=== PATIENT | male | born 2005 | race Caucasian/White ===

== ENCOUNTER 2023-09-07 15:46 | Emergency (ER) | payer BC, SELFPAY ==
[2023-09-07 16:14] VITALS: BP 134/68; PULSE 63; RESP 16; TEMP 37.4; O2SAT 96; BMI 21.3
--- NOTE | 2023-09-07 17:14 | ED.GENADULT ---
HPI - General Adult General Date Seen: 09/07/23 Chief complaint: Weakness Stated complaint: Dizzy Time Seen by Provider: 09/07/23 16:58 Source: patient and RN notes reviewed Mode of arrival: ambulatory Limitations: no limitations History of Present Illness HPI narrative: Patient is a 18-year-old [employer] student comes in for a couple weeks of fatigue and weakness. He is originally from [facility], he went to school in [place] last year now is a sophomore at [employer]. 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 Overall he feels things are going well at [employer]. He is on the swim team. He notes for the past couple of weeks he has been too fatigued to participate in practice is. He does say that this is happened to him in the past and he has been evaluated multiple times. About a year ago he saw orthopedically impaired teacher because his heart rate during practice is was going into the low 200s, he says all of his test were unremarkable and ultimately he just watches his exertion to make sure that his heart rate is getting too fast. He does not have exertional chest pain, he did have some near syncopal type symptoms last year that prompted this cardiology workup. He says he has been evaluated in the past for immune system disorders all of which was negative. He says he has been tested for mono more times that he can remember. He denies symptoms of depression or any mental health history. He has not recently had any fevers, cough, difficulty breathing, vomiting or diarrhea. He says school is going well. He denies tobacco or alcohol use, denies any other substance use. He has gained a little bit of weight in the past few weeks intentionally as he is lifting for a swim team. Related Data Home Medications Medication Instructions Recorded Confirmed calcium phos,dibas-vitamin D3 PO 09/07/23 Allergies Allergy/AdvReac Type Severity Reaction Status Date / Time orange Allergy Intermediate Hives Verified 09/07/23 16:20 Penicillins Allergy Intermediate Hives Verified 09/07/23 16:20 Review of Systems Status of ROS: Reports: 10 or more systems reviewed and unremarkable except as noted in History and below PFSH PFSH Social History Smoking Status: Never smoker Do you use any of these nicotine containing products: None Second hand tobacco smoke exposure: No How often do you have a drink containing alcohol: never AUDIT-C Alcohol total score: 0 Non-prescribed substance use: denies use Exam Narrative: Exam Narrative: Vital signs as noted above. In general, an alert, well-appearing patient. Head: Normocephalic, atraumatic. Eyes: Pupils are equal reactive. Extraocular movements are full. Conjunctivae are normal. ENT: Mucous membranes are moist. Throat is normal. Neck: Supple without lymphadenopathy. Heart: Regular rate and rhythm. No murmur or rub. Lungs: Clear bilaterally. No increased work of breathing, crackles or wheezes. Abdomen: Abdomen is muscular, he flexes all of his muscles with palpation and says he is not able to relax them. He says that his abdominal muscles are sore from workouts. He does not have other significant abdominal pain. Extremities: Well perfused. No edema. No calf tenderness. Pulses intact. Neurologic: Patient is alert and oriented to person and place. Speech is fluent. Face is symmetric. Moves all extremities equally. Affect: Flat. Skin: Warm and dry. Well perfused. Const: Vital Signs, click to edit/add: Vital Signs - 24 hr 09/07/23 16:14 09/07/23 18:26 Temperature 99.4 F Pulse Rate [Pulse Oximeter] 63 67 Respiratory Rate 16 18 Blood Pressure [Ri ght Upper Arm] 134/68 128/68 Pulse Oximetry 96 98 Oxygen Delivery Me thod Room Air Room Air Documenting provider has reviewed patient's vital signs: yes Course Course ED Course: Exam is unremarkable. Discussed that we will check some basic labs, it sounds as if he has had a cardiac workup relatively recently which was unrevealing. His vital signs here are normal, heart sounds are normal. Labs are unremarkable, I did a CBC, metabolic panel, TSH, CRP and sed rate as well as a liver panel. Everything is completely within normal limits with the exception of an AST of 46. I have reviewed all this with him, he says that this has happened every time he has had this evaluated nothing is ever found. Discussed with him that within the confines of what I am able to check in the emergency department everything looks good, but I would encourage primary care follow-up for recheck and discussion of any other testing that may be available in the outpatient setting. Return at any time for worsening. 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 Vital Signs Vital signs: Initial Vital Signs Temperature 99.4 F 09/07/23 16:14 Temperature Source Temporal Artery Scan 09/07/23 16:14 Pulse Rate 63 09/07/23 16:14 Respiratory Rate 16 09/07/23 16:14 Blood Pressure 134/68 09/07/23 16:14 Blood Pressure Mean 90 09/07/23 16:14 Blood Pressure Position Sitting 09/07/23 16:14 Pulse Oximetry 96 09/07/23 16:14 Oxygen Delivery Method Room Air 09/07/23 16:14 Vital Signs Temperature 99.4 F 09/07/23 16:14 Pulse Rate 63 09/07/23 16:14 Respiratory Rate 16 09/07/23 16:14 Blood Pressure 134/68 09/07/23 16:14 Pulse Oximetry 96 09/07/23 16:14 Oxygen Delivery Method Room Air 09/07/23 16:14 Temperature 99.4 F 09/07/23 16:14 Pulse Rate 67 09/07/23 18:26 Respiratory Rate 18 09/07/23 18:26 Blood Pressure 128/68 09/07/23 18:26 Pulse Oximetry 98 09/07/23 18:26 Oxygen Delivery Method Room Air 09/07/23 18:26 Medical Decision Making Lab Data Labs: Lab Results 09/07/23 09/07/23 09/07/23 Range/Units 16:35 16:35 16:35 WBC 7.13 (4.50-11.00) K/uL RBC 4.94 (4.30-5.90) m/uL Hgb 14.9 (13.5-17.5) gm/dL Hct 44.1 (37.0-53.0) % MCV 89 (80-100) fL MCH 30 (26-34) pg MCHC 34 (32-36) gm/dL RDW Coeff of Aury 12.4 (11.5-15.5) % Plt Count 279 (140-440) K/uL Neut % (Auto) 51.7 (42.0-72.0) % Lymph % (Auto) 35.1 (20-44) % [place] % (Auto) 10.9 (0.0-11.0) % Eos % (Auto) 1.8 (0.0-7.0) % Baso % (Auto) 0.4 (0.0-3.0) % Neut # (Auto) 3.68 (1.7-7.0) K/uL Lymph # (Auto) 2.50 (0.90-2.90) K/uL [place] # (Auto) 0.80 (0.00-0.90) K/UL Eos # (Auto) 0.13 (0.00-0.50) K/uL Baso # (Auto) 0.03 (0.00-0.30) K/uL Abs Immat Gran (auto) 0.01 (0.00-0.30) K/uL Imm/Tot Granulo (auto) 0.1 % ESR 2 (2-15) mm/hr Sodium 139 (135-149) mmol/L Potassium 4.3 (3.6-5.1) mmol/L Chloride 101 (96-114) mmol/L Carbon Dioxide 30 (20-32) mmol/L Anion Gap 8 (7-15) mEq/L BUN 16 (5-24) mg/dL Creatinine 0.7 (0.5-1.5) mg/dL Estimated Creat Clear 169.56 Estimated GFR 135 ml/min Glucose 101 (60-115) mg/dL Calcium 9.5 (8.4-10.6) mg/dL Total Bilirubin 0.4 Cancelled (0.1-1.5) mg/dL Direct Bilirubin 0.0 Cancelled (0.0-0.5) mg/dL AST 46 H (12-35) U/L ALT (4-50) U/L Alkaline Phosphatase (40-150) U/L C-Reactive Protein (0.5-1.0) mg/dL Total Protein (6.0-8.3) g/dL Albumin (3.3-5.0) g/dL TSH (0.270-4.200) uIU/mL Urine Color (Yellow) Urine Appearance (Clear) Urine pH (5.0-8.5) Ur Specific [place] (1.000-1.030) Urine Protein (Negative) Urine Glucose (UA) (Negative) Urine Ketones (Negative) Urine Blood (Negative) Urine Nitrite (Negative) Urine Bilirubin (Negative) Urine Urobilinogen (0.2-1.0) Ur Leukocyte Esterase (Negative) Urine RBC (0-2) Urine WBC (0-5) Ur Squamous Epith Cells (None-Few) Urine Bacteria (None) Urine Opiates Screen (Negative) Ur Oxycodone Screen (Negative) Urine Methadone Screen (Negative) Ur Propoxyphene Screen (Negative) Ur Barbiturates Screen (Negative) U Tricyclic Antidepress (Negative) Ur Phencyclidine Scrn (Negative) Ur Amphetamines Screen (Negative) U Methamphetamines Scrn (Negative) U Benzodiazepines Scrn (Negative) Urine Cocaine Screen (Negative) U Marijuana (THC) Screen (Negative) Ur Drug Screen Comment 09/07/23 09/07/23 09/07/23 Range/Units 16:35 16:35 16:35 WBC (4.50-11.00) K/uL RBC (4.30-5.90) m/uL Hgb (13.5-17.5) gm/dL Hct (37.0-53.0) % MCV (80-100) fL MCH (26-34) pg MCHC (32-36) gm/dL RDW Coeff of Aury (11.5-15.5) % Plt Count (140-440) K/uL Neut % (Auto) (42.0-72.0) % Lymph % (Auto) (20-44) % [place] % (Auto) (0.0-11.0) % Eos % (Auto) (0.0-7.0) % Baso % (Auto) (0.0-3.0) % Neut # (Auto) (1.7-7.0) K/uL Lymph # (Auto) (0.90-2.90) K/uL [place] # (Auto) (0.00-0.90) K/UL Eos # (Auto) (0.00-0.50) K/uL Baso # (Auto) (0.00-0.30) K/uL Abs Immat Gran (auto) (0.00-0.30) K/uL Imm/Tot Granulo (auto) % ESR (2-15) mm/hr Sodium (135-149) mmol/L Potassium (3.6-5.1) mmol/L Chloride (96-114) mmol/L Carbon Dioxide (20-32) mmol/L Anion Gap (7-15) mEq/L BUN (5-24) mg/dL Creatinine (0.5-1.5) mg/dL Estimated Creat Clear Estimated GFR ml/min Glucose (60-115) mg/dL Calcium (8.4-10.6) mg/dL Total Bilirubin (0.1-1.5) mg/dL Direct Bilirubin (0.0-0.5) mg/dL AST Cancelled (12-35) U/L ALT 29 Cancelled (4-50) U/L Alkaline Phosphatase 74 Cancelled (40-150) U/L C-Reactive Protein 0.6 (0.5-1.0) mg/dL Total Protein 7.9 (6.0-8.3) g/dL Albumin (3.3-5.0) g/dL TSH (0.270-4.200) uIU/mL Urine Color (Yellow) Urine Appearance (Clear) Urine pH (5.0-8.5) Ur Specific [place] (1.000-1.030) Urine Protein (Negative) Urine Glucose (UA) (Negative) Urine Ketones (Negative) Urine Blood (Negative) Urine Nitrite (Negative) Urine Bilirubin (Negative) Urine Urobilinogen (0.2-1.0) Ur Leukocyte Esterase (Negative) Urine RBC (0-2) Urine WBC (0-5) Ur Squamous Epith Cells (None-Few) Urine Bacteria (None) Urine Opiates Screen (Negative) Ur Oxycodone Screen (Negative) Urine Methadone Screen (Negative) Ur Propoxyphene Screen (Negative) Ur Barbiturates Screen (Negative) U Tricyclic Antidepress (Negative) Ur Phencyclidine Scrn (Negative) Ur Amphetamines Screen (Negative) U Methamphetamines Scrn (Negative) U Benzodiazepines Scrn (Negative) Urine Cocaine Screen (Negative) U Marijuana (THC) Screen (Negative) Ur Drug Screen Comment 09/07/23 09/07/23 09/07/23 Range/Units 16:35 16:35 17:17 WBC (4.50-11.00) K/uL RBC (4.30-5.90) m/uL Hgb (13.5-17.5) gm/dL Hct (37.0-53.0) % MCV (80-100) fL MCH (26-34) pg MCHC (32-36) gm/dL RDW Coeff of Aury (11.5-15.5) % Plt Count (140-440) K/uL Neut % (Auto) (42.0-72.0) % Lymph % (Auto) (20-44) % [place] % (Auto) (0.0-11.0) % Eos % (Auto) (0.0-7.0) % Baso % (Auto) (0.0-3.0) % Neut # (Auto) (1.7-7.0) K/uL Lymph # (Auto) (0.90-2.90) K/uL [place] # (Auto) (0.00-0.90) K/UL Eos # (Auto) (0.00-0.50) K/uL Baso # (Auto) (0.00-0.30) K/uL Abs Immat Gran (auto) (0.00-0.30) K/uL Imm/Tot Granulo (auto) % ESR (2-15) mm/hr Sodium (135-149) mmol/L Potassium (3.6-5.1) mmol/L Chloride (96-114) mmol/L Carbon Dioxide (20-32) mmol/L Anion Gap (7-15) mEq/L BUN (5-24) mg/dL Creatinine (0.5-1.5) mg/dL Estimated Creat Clear Estimated GFR ml/min Glucose (60-115) mg/dL Calcium (8.4-10.6) mg/dL Total Bilirubin (0.1-1.5) mg/dL Direct Bilirubin (0.0-0.5) mg/dL AST (12-35) U/L ALT (4-50) U/L Alkaline Phosphatase (40-150) U/L C-Reactive Protein (0.5-1.0) mg/dL Total Protein Cancelled (6.0-8.3) g/dL Albumin 4.7 Cancelled (3.3-5.0) g/dL TSH 1.330 (0.270-4.200) uIU/mL Urine Color Yellow (Yellow) Urine Appearance Clear (Clear) Urine pH 7.0 (5.0-8.5) Ur Specific [place] 1.020 (1.000-1.030) Urine Protein Negative (Negative) Urine Glucose (UA) Negative (Negative) Urine Ketones Negative (Negative) Urine Blood Negative (Negative) Urine Nitrite Negative (Negative) Urine Bilirubin Negative (Negative) Urine Urobilinogen 0.2 (0.2-1.0) Ur Leukocyte Esterase Negative (Negative) Urine RBC 0-2 (0-2) Urine WBC 0-2 (0-5) Ur Squamous Epith Cells Few (None-Few) Urine Bacteria None (None) Urine Opiates Screen Negative (Negative) Ur Oxycodone Screen Negative (Negative) Urine Methadone Screen Negative (Negative) Ur Propoxyphene Screen Negative (Negative) Ur Barbiturates Screen Negative (Negative) U Tricyclic Antidepress Negative (Negative) Ur Phencyclidine Scrn Negative (Negative) Ur Amphetamines Screen Negative (Negative) U Methamphetamines Scrn Negative (Negative) U Benzodiazepines Scrn Negative (Negative) Urine Cocaine Screen Negative (Negative) U Marijuana (THC) Screen Negative (Negative) Ur Drug Screen Comment See Note Discharge Plan Discharge Clinical Impression: Fatigue Patient Disposition: Home, Self-Care Condition: Stable Instructions: Fatigue (ED) Additional Instructions: All of your tests are normal today including blood counts, inflammatory markers, liver and kidney function, thyroid function. I would recommend follow-up in clinic for re-evaluation and discussion of any further testing that might be useful. Prescriptions: No Action calcium phos,dibas-vitamin D3 [Vitamin D (with calcium)] PO Follow Up/Referrals: Provider,Not a Local [Primary Care Provider] - Stand Alone Forms: [employer] Info Instructions
[2023-09-07 17:28] LABS: Appearance Urine Clear (Clear); Bilirubin Urine Negative (Negative); Blood Urine Negative (Negative); Color Urine Yellow (Yellow); Glucose Urine Negative (Negative); Ketones Urine Negative (Negative); Leukocyte Esterase Urine Negative (Negative); Nitrite Urine Negative (Negative); Protein Urine Negative (Negative); Urobilinogen Urine 0.2 (0.2-1.0)
[2023-09-07 17:36] LABS: Amphetamine Screen Urine Negative (Negative); Barbiturate Screen Urine Negative (Negative); Benzodiazepines Screen Urine Negative (Negative); Cannabinoid Screen Urine Negative (Negative); Cocaine Screen Urine Negative (Negative); Methadone Screen Urine Negative (Negative); Methamphetamines Screen Urine Negative (Negative); Opiate Screen Urine Negative (Negative); Oxycodone Screen Urine Negative (Negative); Phencyclidine Screen Urine Negative (Negative); RBC Urine 0-2 (0-2); Squamous Epithelial Cell Urine Few (None-Few); Tricyclic Antidepressant Urine Negative (Negative); WBC Urine 0-2 (0-5)
[2023-09-07 17:41] LABS: Hematocrit 44.1 % (37.0-53.0); Hemoglobin* 14.9 gm/dL (13.5-17.5); Lymphocytes Percent Auto 35.1 % (20-44); Mean Corpuscular HGB Conc 34 gm/dL (32-36); Mean Corpuscular Hemoglobin 30 pg (26-34); Mean Corpuscular Volume 89 fL (80-100); Neutrophils Percent Auto 51.7 % (42.0-72.0); Platelet Count* 279 K/uL (140-440); RDW Coefficient of Variation % 12.4 % (11.5-15.5); Red Blood Count 4.94 m/uL (4.30-5.90); White Blood Count* 7.13 K/uL (4.50-11.00)
[2023-09-07 17:42] LABS: Basophils Absolute Auto 0.03 K/uL (0.00-0.30); Basophils Percent Auto 0.4 % (0.0-3.0); Eosinophils Absolute Auto 0.13 K/uL (0.00-0.50); Eosinophils Percent Auto 1.8 % (0.0-7.0); Immature Granulocytes Abs Auto 0.01 K/uL (0.00-0.30); Immature Granulocytes Pct Auto 0.1 %; Monocytes Percent Auto 10.9 % (0.0-11.0); Neutrophils Absolute Auto 3.68 K/uL (1.7-7.0)
[2023-09-07 17:50] LABS: Slide Review Reflex No
[2023-09-07 17:56] LABS: Chloride* 101 mmol/L (96-114); Potassium* 4.3 mmol/L (3.6-5.1); Sodium* 139 mmol/L (135-149)
[2023-09-07 17:58] LABS: Creatinine* 0.7 mg/dL (0.5-1.5); Est. Creatinine Clearance* 169.56; Estimated Glomerular Filt Rate 135 ml/min
[2023-09-07 17:59] LABS: Anion Gap 8 mEq/L (7-15); Blood Urea Nitrogen* 16 mg/dL (5-24); Carbon Dioxide* 30 mmol/L (20-32); Glucose* 101 mg/dL (60-115)
[2023-09-07 18:00] LABS: Calcium* 9.5 mg/dL (8.4-10.6)
[2023-09-07 18:02] LABS: C Reactive Protein* 0.6 mg/dL (0.5-1.0)
[2023-09-07 18:23] LABS: Erythrocyte SedimentationRate* 2 mm/hr (2-15)
[2023-09-07 18:26] VITALS: BP 128/68; PULSE 67; RESP 18; O2SAT 98
[2023-09-07 18:26] LABS: Albumin* 4.7 g/dL (3.3-5.0); Total Protein* 7.9 g/dL (6.0-8.3)
[2023-09-07 18:27] LABS: Alanine Aminotransferase* 29 U/L (4-50); Alkaline Phosphatase* 74 U/L (40-150); Aspartate Amino Transferase* 46 U/L (12-35); Bilirubin Total* 0.4 mg/dL (0.1-1.5)
== END 2023-09-07 18:49 | disposition home or self-care (01) ==
PROVIDERS: Emergency Provider Emergency Medicine
DX: R53.83 Other fatigue (principal)
CPT/HCPCS: 36415; 80048; 80076; 80306; 81001; 84443; 85025; 85651; 86140; 93005; 99283; 99284